=== PATIENT | female | born 1985 | race Caucasian/White ===

== ENCOUNTER 2021-03-10 22:20 | Observation (INO) ==
[2021-03-10] MEDS ORDERED: Isovue-370 500 ML BOTTLE IVP ONE (23:32)
[2021-03-10] MEDS ORDERED: *HR* HYDROmorphone (PF) 1 MG/ML SYRINGE IVP ONE (23:43)
[2021-03-11] MEDS: 0.9 % Sodium Chloride 1,000 ML IVC ONE ×2 (00:07→01:47)
[2021-03-11] MEDS ORDERED: levoFLOXacin 750 MG/150 ML 750 MG/150 ML BAG IVPB ONE (00:54)
[2021-03-11] MEDS ORDERED: Ketorolac 15 MG/ML VIAL IVP ONE (00:58)
[2021-03-11 01:17] LABS: Basophils % 0.3 %; Eosinophils # 0.1 K/mcL (0.0-0.6); Eosinophils % 1.2 %; Hematocrit 42.1 % (35.3-44.9); Immature Granulocytes % 0.3 % (0-4); Lymphocytes # 2.7 K/mcL (0.6-4.6); Lymphocytes % 41.4 %; Mean Corpuscular HGB Conc 33.3 g/dL (31.6-35.5); Mean Corpuscular Hemoglobin 28.4 pg (28.0-33.3); Mean Corpuscular Volume 85.4 fL (83.0-100.0); Mean Platelet Volume 11.3 fL (9.4-12.4); Monocytes # 0.4 K/mcL (0.0-1.3); Monocytes % 6.7 %; Neutrophils # 3.3 K/mcL (1.6-8.9); Platelet Count 278 K/mcL (140-400); Red Blood Count 4.93 M/mcL (3.82-4.97); Red Cell Distribution Width 12.9 % (11.5-14.5); Segmented Neutrophils % 50.1 %; White Blood Count 6.6 K/mcL (4.3-11.1)
[2021-03-11] MEDS ORDERED: *HR* Rivaroxaban 10 MG TABLET PO ONE (01:20)
[2021-03-11] MEDS ORDERED: Naloxone 0.4 MG/ML INJ IVP PRN (02:58)
[2021-03-11] MEDS ORDERED: *HR* OxyCODONE Immed Rel 5 MG TABLET PO PRN (02:58)
[2021-03-11] MEDS ORDERED: *HR* HYDROcodone/Acet 5/325 mg TABLET PO PRN ×2 (02:58→11:12)
[2021-03-11 03:35] LABS: Bilirubin,Urine Negative (Negative); Blood,Urine Trace-intact (Negative); Clarity,Urine Slightly Cloudy (Clear); Glucose,Urine (UA) Normal (Normal); Ketones,Urine Negative (Negative); Leukocyte Esterase,Urine Trace (Negative); Nitrite,Urine Positive (Negative); PH,Urine 6.5 pH Units (5.0-8.0); Protein,Urine Negative (Neg-Trace); Specific Gravity,Urine 1.015 (1.010-1.025); Urobilinogen,Urine Normal (Normal)
[2021-03-11 03:36] LABS: Color,Urine Yellow (Yellow)
[2021-03-11 03:38] LABS: RBC,Urine 0-3 per hpf (0-3); Squamous Epithelial Cell,Urine Few per hpf (None-Few)
[2021-03-11 03:39] LABS: Bacteria,Urine Moderate per hpf (None-Few)
[2021-03-11] MEDS: Ondansetron 4 MG/2 ML VIAL IVP PRN ×2 (03:53→19:00)
[2021-03-11] MEDS: 0.9 % Sodium Chloride 1,000 ML IVC SCH ×2 (03:53→16:04)
[2021-03-11] MEDS: levoFLOXacin 750 MG TABLET PO SCH (09:09)
[2021-03-11] MEDS: *HR* Rivaroxaban 15 MG TABLET PO SCH ×2 (09:10→16:03)
[2021-03-12] MEDS: levoFLOXacin 750 MG TABLET PO SCH (09:33)
[2021-03-12] MEDS: *HR* Rivaroxaban 15 MG TABLET PO SCH (09:33)
[2021-03-12 11:29] LABS: Basophils % 0.5 %; Eosinophils # 0.1 K/mcL (0.0-0.6); Eosinophils % 0.9 %; Hematocrit 39.5 % (35.3-44.9); Hemoglobin 12.9 g/dL (11.5-15.4); Immature Granulocytes % 0.8 % (0-4); Lymphocytes # 2.3 K/mcL (0.6-4.6); Lymphocytes % 34.6 %; Mean Corpuscular HGB Conc 32.7 g/dL (31.6-35.5); Mean Corpuscular Hemoglobin 28.3 pg (28.0-33.3); Mean Corpuscular Volume 86.6 fL (83.0-100.0); Mean Platelet Volume 9.7 fL (9.4-12.4); Monocytes # 0.6 K/mcL (0.0-1.3); Neutrophils # 3.6 K/mcL (1.6-8.9); Platelet Count 232 K/mcL (140-400); Red Blood Count 4.56 M/mcL (3.82-4.97); Segmented Neutrophils % 54.2 %; White Blood Count 6.6 K/mcL (4.3-11.1)
[2021-03-12 11:47] LABS: BUN/Creatinine Ratio 10 (6-26); Blood Urea Nitrogen 8 mg/dL (6-20); Calcium 8.3 mg/dL (8.6-10.3); Carbon Dioxide 24 mEq/L (23-29); Chloride 105 mEq/L (98-107); Glucose 75 mg/dL (70-105); Osmolality,Calculated 281 (280-300); Potassium 3.7 mEq/L (3.5-5.1); Sodium 137 mEq/L (136-145); eGFR For African Americans > 60 (> 60); eGFR For Non-African Americans > 60 (> 60)
[2021-03-12 11:55] VITALS: O2SAT 97
[2021-03-12 11:58] VITALS: BP 138/98; PULSE 73; RESP 16; TEMP 97.6
== END 2021-03-12 12:59 | disposition home or self-care (01) ==
LOC: EMEROOGRE 22:20 → INPGRE 22:20
PROVIDERS: ADMIT Internal Medicine; ATTEND Internal Medicine